=== PATIENT | female | born 1995 | race Caucasian/White ===

== ENCOUNTER → 2024-04-18 12:57 | Outpatient (REF) | payer OTHER, SELFPAY | LOC: RAD 12:57 | PROVIDERS: ATTENDING PHYSICIAN Obstetrics & Gynecology; FAMILY PHYSICIAN Family Medicine | DX: E28.2 Polycystic ovarian syndrome (principal) | CPT/HCPCS: 76830; 76856 ==

== ENCOUNTER → 2025-03-14 12:05 | Outpatient (REF) | payer OTHER, SELFPAY ==
[2025-03-22 05:31] LABS: HPV, High Risk Not Detected; HPV, High Risk Source Cervical
== END ==
LOC: CPAP 12:05
PROVIDERS: ATTENDING PHYSICIAN Nurse Practitioner Family
DX: Z34.90 Encounter for supervision of normal pregnancy, unspecified, unspecified trimester (principal); Z11.3 Encounter for screening for infections with a predominantly sexual mode of transmission; Z11.51 Encounter for screening for human papillomavirus (HPV)
CPT/HCPCS: 87491; 87591; 87624

== ENCOUNTER → 2025-05-13 06:45 | Outpatient (REF) | payer BC, SELFPAY | LOC: PNTC 06:45 | PROVIDERS: ATTENDING PHYSICIAN Obstetrics & Gynecology | DX: O30.049 Twin pregnancy, dichorionic/diamniotic, unspecified trimester (principal) | CPT/HCPCS: 76805; 76810 ==

== ENCOUNTER → 2025-06-04 13:16 | Outpatient (REF) | payer BC, SELFPAY | LOC: PNTC 13:16 | PROVIDERS: ATTENDING PHYSICIAN Obstetrics & Gynecology | DX: O30.049 Twin pregnancy, dichorionic/diamniotic, unspecified trimester (principal) | CPT/HCPCS: 76811; 76812; 76817 ==

== ENCOUNTER → 2025-07-02 13:19 | Outpatient (REF) | payer BC, SELFPAY | LOC: PNTC 13:19 | PROVIDERS: ATTENDING PHYSICIAN Obstetrics & Gynecology | DX: O30.049 Twin pregnancy, dichorionic/diamniotic, unspecified trimester (principal) | CPT/HCPCS: 76816 ==

== ENCOUNTER → 2025-07-29 13:21 | Outpatient (REF) | payer BC, SELFPAY | LOC: PNTC 13:21 | PROVIDERS: ATTENDING PHYSICIAN Obstetrics & Gynecology | DX: O30.049 Twin pregnancy, dichorionic/diamniotic, unspecified trimester (principal) | CPT/HCPCS: 76816 ==

== ENCOUNTER → 2025-08-19 09:14 | Outpatient (REF) | payer BC, SELFPAY | LOC: PNTC 09:14 | PROVIDERS: ATTENDING PHYSICIAN Obstetrics & Gynecology | DX: O30.049 Twin pregnancy, dichorionic/diamniotic, unspecified trimester (principal) | CPT/HCPCS: 59025; 76815 ==

== ENCOUNTER → 2025-08-26 08:49 | Outpatient (REF) | payer BC, SELFPAY | LOC: PNTC 08:49 | PROVIDERS: ATTENDING PHYSICIAN Obstetrics & Gynecology | DX: O30.043 Twin pregnancy, dichorionic/diamniotic, third trimester (principal) | CPT/HCPCS: 59025; 76816; 76818 ==

== ENCOUNTER → 2025-09-02 08:49 | Outpatient (REF) | payer BC, SELFPAY | LOC: PNTC 08:49 | PROVIDERS: ATTENDING PHYSICIAN Obstetrics & Gynecology | DX: O30.043 Twin pregnancy, dichorionic/diamniotic, third trimester (principal) | CPT/HCPCS: 59025; 76815 ==

== ENCOUNTER → 2025-09-09 09:00 | Outpatient (REF) | payer BC, SELFPAY | LOC: PNTC 09:00 | PROVIDERS: ATTENDING PHYSICIAN Obstetrics & Gynecology | DX: O30.043 Twin pregnancy, dichorionic/diamniotic, third trimester (principal) | CPT/HCPCS: 59025; 76815 ==

== ENCOUNTER → 2025-09-16 08:50 | Outpatient (REF) | payer BC, SELFPAY | LOC: PNTC 08:50 | PROVIDERS: ATTENDING PHYSICIAN Obstetrics & Gynecology | DX: O30.043 Twin pregnancy, dichorionic/diamniotic, third trimester (principal) | CPT/HCPCS: 59025; 76815 ==

== ENCOUNTER → 2025-09-23 08:51 | Outpatient (REF) | payer BC, SELFPAY | LOC: PNTC 08:51 | PROVIDERS: ATTENDING PHYSICIAN Obstetrics & Gynecology | DX: O30.043 Twin pregnancy, dichorionic/diamniotic, third trimester (principal) | CPT/HCPCS: 59025; 76805; 76810 ==

== ENCOUNTER → 2025-09-30 08:49 | Outpatient (REF) | payer BC, SELFPAY | LOC: PNTC 08:49 | PROVIDERS: ATTENDING PHYSICIAN Obstetrics & Gynecology | DX: O30.043 Twin pregnancy, dichorionic/diamniotic, third trimester (principal) | CPT/HCPCS: 59025; 76815 ==

== ENCOUNTER 2025-10-02 07:09 | Inpatient (IN) | payer BC, SELFPAY ==
[2025-10-02 07:18] VITALS: BP 137/82; BMI 53.3
[2025-10-02] MEDS: LR 1000 IV ×2 (07:45→08:48)
[2025-10-02 07:52] LABS: Hematocrit 37.9 % (37.0-47.0); Hemoglobin 13.4 g/dL (12.0-16.0); Mean Corp Hgb Conc. 35.4 g/dL (33.0-37.0); Mean Corpuscular Volume 92.4 fL (81.0-99.0); Platelet Count 176 10^3/uL (130-400); Red Cell Dist. Width 12.0 % (11.5-14.5)
[2025-10-02] MEDS: TYLENOL 975 MG PO (08:49)
[2025-10-02] MEDS: BICITRA 30 ML PO (08:49)
[2025-10-02] MEDS: ANCEF 15 MG IV (09:37)
[2025-10-02 12:18] LABS: Cord ABG B.E. - POC -12.4 mmol/L; Cord ABG HCO3 - POC 20 mmol/L; Cord ABG pCO2 - POC 82 mmHg; Cord ABG pH - POC 7.00; Cord ABG pO2 - POC < 18 mmHg
[2025-10-02 12:18] LABS: Cord VBG B.E. - POC -10.5 mmol/L; Cord VBG HCO3 - POC 20 mmol/L; Cord VBG pCO2 - POC 63 mmHg; Cord VBG pH - POC 7.11; Cord VBG pO2 - POC < 18 mmHg
[2025-10-02] MEDS: METHERGINE INJECTION 0.2 MG IM (13:17)
[2025-10-02] MEDS: ZOFRAN 4 MG IV (14:22)
[2025-10-02] MEDS: TORADOL 15 MG IV ×2 (17:11→23:00)
[2025-10-02] MEDS: ANCEF 5 IV (17:54)
[2025-10-02] MEDS: COLACE 100 MG PO (20:37)
[2025-10-02] MEDS: FLUSH (NSS) 3 FLUSH IV (23:01)
[2025-10-03] MEDS: ANCEF 5 IV (02:12)
[2025-10-03] MEDS: FLUSH (NSS) 2 FLUSH IV (02:14)
[2025-10-03] MEDS: TYLENOL 650 MG PO ×3 (02:35→20:27)
[2025-10-03] MEDS: TORADOL 15 MG IV ×2 (05:07→10:06)
[2025-10-03 05:52] LABS: Hematocrit 28.3 % (37.0-47.0); Hemoglobin 9.7 g/dL (12.0-16.0); Mean Corp Hgb Conc. 34.3 g/dL (33.0-37.0); Mean Corpuscular Volume 95.0 fL (81.0-99.0); Platelet Count 159 10^3/uL (130-400); Red Cell Dist. Width 11.9 % (11.5-14.5)
[2025-10-03] MEDS: PRENATAL PLUS 1 TABLET PO (08:45)
[2025-10-03] MEDS: COLACE 100 MG PO ×2 (08:45→20:20)
[2025-10-03] MEDS: ANCEF IV (15:59)
[2025-10-03] MEDS: MOTRIN 600 MG PO ×2 (17:15→23:28)
--- NOTE | 2025-10-03 20:22 | W.PN.ANS.POP ---
Anesthesia Post Operative
- Anesthesia Post Op Note
Vital Signs Stable-See Nursing Note: Yes
Airway Patent: Yes
Adequate Pain Control: Yes
Change in Mental Status: No
Current Postoperative Nausea & Vomiting: No
Anesthesia Complications: No
General Anesthetic Recall: No
Unplanned Admission: No
Post Op Hydration Adequate: Yes
- -
Pt awake and alert, resting comfortably with no anesthesia related c/o at time of post op visit.
[2025-10-04] MEDS: TYLENOL 650 MG PO ×4 (04:13→18:29)
[2025-10-04] MEDS: PRENATAL PLUS 1 TABLET PO (09:08)
[2025-10-04] MEDS: COLACE 100 MG PO (09:08)
[2025-10-04] MEDS: MOTRIN 600 MG PO ×3 (09:09→20:55)
[2025-10-04 16:28] LABS: Syphilis/T. pallidum Ab Reflex Negative (Negative)
[2025-10-04] MEDS: COLACE PO (22:51)
[2025-10-05] MEDS: MOTRIN 600 MG PO ×2 (04:24→11:41)
[2025-10-05] MEDS: TYLENOL 650 MG PO ×2 (04:24→08:55)
--- NOTE | 2025-10-05 08:28 | W.DCSUMMARY ---
Discharge Summary
Discharge Data
Date of Admission: 10/02/25
Date of Discharge: 10/05/25
-
Pending Results: Yes
Additional Pending Results:
placenta
Hospital Course
Patient is a 30yo who presented to Labor and Delivery on 10/02 at 38.2 weeks for schedule primary section. Baby B was transverse and patient declined induction of labor due to malposition of baby B. She underwent primary low transverse
section on 10/02 delivery a viable male and viable female infants. The procedure was uncomplicated. The quantitative blood loss was 415mL. , she was noted to have increased bleeding. She was given methergine and hemabate. A
bimanual exam was performed and a large clot was removed. A Louisa was placed. The total blood loss for the procedure and was 961mL. She received a 2nd dose of ancef due to bimanual exams and blood loss. After several hours, her bleeding
was stable and the Louisa was removed. On postop day one, her hemoglobin was 9.7. She had no signs or symptoms of anemia. On postop day 2, she was doing well with no complaints. On postop day 3, she was meeting all and postop milestones and
was stable for discharge home. Discharge instructions and return precautions were reviewed with the patient and all questions were answered. She was instructed to follow up in 2 weeks for an incision check.
Discharge Plan
-
Patient Disposition: Home (Routine Discharge)
Discharge Diagnosis/Procedures: primary low transverse section, twin , hemorrhage
Condition: Good
Diet: No restrictions
Activity: No strenuous activity
Driving Restrictions: No driving for 2 weeks
Bathing Restrictions: OK to Shower
Stand Alone Forms: LDRP Delivery
Referrals:
Conchis Ozuna, DO [Active, Gynecology] - in two weeks
UNKNOWN,NO INTERVIEW [Family Provider]
Prescriptions:
New
acetaminophen 325 mg Tablet
650 mg PO Q4HPRN PRN (Reason: mild pain) Qty: 1 0RF
ibuprofen 600 mg Tablet
600 mg PO Q6HPRN PRN (Reason: cramps) Qty: 1 0RF
Continued
prenat.vits,camila,[id number] Tablet
1 tab PO DAILY
Discontinued
aspirin 81 mg Capsule
81 mg PO DAILY
Discharge Orders:
Discharge Patient (As Directed); Ordered 10/05/25
Ordered By: Kristan Alberto
Discharge Date and Time
Print Language: [place]
[2025-10-05] MEDS: PRENATAL PLUS 1 TABLET PO (08:46)
[2025-10-05] MEDS: COLACE PO (08:51)
[2025-10-05] MEDS: M-M-R II 0.5 ML SC (08:56)
== END 2025-10-05 13:31 | disposition home or self-care (01) | DRG 788 ==
LOC: LDRP 07:09
PROVIDERS: ADMITTING PHYSICIAN Obstetrics & Gynecology
PROC: 0W3R7ZZ Control Bleeding in Genitourinary Tract, Via Natural or Artificial Opening (ICD-10-PCS; 2025-10-02)
PROC: 10D00Z1 Extraction of Products of Conception, Low, Open Approach (ICD-10-PCS; 2025-10-02)
DX: O64.8XX2 Obstructed labor due to other malposition and malpresentation, fetus 2 (principal); O30.043 Twin pregnancy, dichorionic/diamniotic, third trimester; Z3A.38 38 weeks gestation of pregnancy; Z37.2 Twins, both liveborn; E28.2 Polycystic ovarian syndrome; O34.80 Maternal care for other abnormalities of pelvic organs, unspecified trimester
CPT/HCPCS: 36415; 85027; 86780; 86850; 86900; 86901; 88307; 90707